=== PATIENT | female | born 1995 | race Caucasian/White ===

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

== ENCOUNTER 2017-01-06 13:54 | Emergency (ER) | payer BC ==
[~2017-01-06] VITALS: Ht 160 cm; Wt 74.8 kg
[2017-01-06 13:57] VITALS: BP 112/70
[2017-01-06] MEDS ORDERED: FLAG500T PO (16:01)
== END 2017-01-06 16:10 | disposition home or self-care (01) ==
LOC: M ED 14:47
DX: N76.0 Acute vaginitis (principal); Z86.19 Personal history of other infectious and parasitic diseases; F17.210 Nicotine dependence, cigarettes, uncomplicated; Z88.1 Allergy status to other antibiotic agents

== ENCOUNTER 2017-04-03 15:19 | Emergency (ER) | payer BC ==
[~2017-04-03] VITALS: Ht 160 cm; Wt 72.7 kg
[2017-04-03 15:19] VITALS: BP 109/65
[~2017-04-03 15:19] MED LIST: FLAG500T PO
== END 2017-04-03 17:05 | disposition home or self-care (01) ==
LOC: M ED 15:19
DX: N92.6 Irregular menstruation, unspecified (principal); Z32.02 Encounter for pregnancy test, result negative; Z88.1 Allergy status to other antibiotic agents

== ENCOUNTER 2017-05-06 23:22 | Emergency (ER) | payer BC ==
[~2017-05-06] VITALS: Ht 160 cm; Wt 75.0 kg
[2017-05-07 01:11] VITALS: BP 112/73
== END 2017-05-07 01:46 | disposition home or self-care (01) ==
LOC: M ED 23:22
DX: Z11.4 Encounter for screening for human immunodeficiency virus [HIV] (principal); F17.210 Nicotine dependence, cigarettes, uncomplicated; Z88.1 Allergy status to other antibiotic agents

== ENCOUNTER → 2017-06-29 | Outpatient (REF) | payer BC | LOC: M LAB REF 12:59 | PROVIDERS: ATTEND Specialist | DX: Z11.3 Encounter for screening for infections with a predominantly sexual mode of transmission (principal) ==

== ENCOUNTER → 2017-10-08 | Outpatient (CLI) | payer BC | LOC: M CARPUL 06:49 | DX: F17.200 Nicotine dependence, unspecified, uncomplicated (principal) ==

== ENCOUNTER → 2017-10-08 | Outpatient (CLI) | payer BC | LOC: M RAD 07:14 | DX: R10.2 Pelvic and perineal pain (principal) ==

== ENCOUNTER 2018-07-04 16:05 | Emergency (ER) | payer OTHER, BC | END 2018-07-04 17:18 | disposition home or self-care (01) | LOC: M ED 16:05 | DX: S60.212A Contusion of left wrist, initial encounter (principal); S66.912A Strain of unspecified muscle, fascia and tendon at wrist and hand level, left hand, initial encounter; V47.5XXA Car driver injured in collision with fixed or stationary object in traffic accident, initial encounter; Y92.410 Unspecified street and highway as the place of occurrence of the external cause; W22.11XA Striking against or struck by driver side automobile airbag, initial encounter; Z88.1 Allergy status to other antibiotic agents | CPT/HCPCS: 73110 ==